=== PATIENT | female | born 1975 | race Caucasian/White ===

== ENCOUNTER 2018-02-01 06:59 | Day surgery (SDC) | payer OTHER ==
[2018-01-31 14:09] VITALS: BMI 32.9
[2018-02-01] MEDS ORDERED: MIDAZOLAM HCL 2 MG/2 ML SINGLE DOSE VIAL ONE (09:11)
[2018-02-01] MEDS ORDERED: PROPOFOL 20 ML ONE (09:11)
[2018-02-01] MEDS ORDERED: LIDOCAINE HCL 2% (20ML MULTI-DOSE VIAL) NR ONE (09:40)
[2018-02-01] MEDS ORDERED: ceFAZolin SODIUM 1 GM VIAL ONE (09:54)
[2018-02-01] MEDS ORDERED: LIDOCAINE HCL 2% (50ML VIAL) INF ONE (10:11)
--- NOTE | 2018-02-01 11:32 | OP ---
DATE OF OPERATION: 02/01/2018 LOCATION: [facility]. SURGEON: Car Tejada MD [employer]: SAAD Adame PREOPERATIVE DIAGNOSIS: Right wrist mass, i.e., ganglion cyst, volar surface. POSTOPERATIVE DIAGNOSIS: Right wrist mass, i.e., ganglion cyst, volar surface. PROCEDURE: Excision of right ganglion cyst, volar surface, removal of mass. FINDINGS: Ganglion type of cyst with extension into the carpus joint. PROCEDURE: Informed consent was obtained. The patient was brought to the operating room where the right upper extremity was prepped and draped in sterile fashion. A tourniquet was placed on the upper arm and inflated to 250 mmHg. A longitudinal incision was made in the area of the mass to the direction of the stalk. Cyst was identified and taken through the soft tissue and taken down to the stalk into the joint which was opened up to remove. There was noted to be adhesions to the artery which were removed leaving the wall of the cyst to the artery and superficial nerve structures released from the cyst as well. The wound was irrigated with copious amounts of irrigation. Tourniquet was released. There was no evidence of arterial bleeding minus venous bleeding treated with compression. The wound was irrigated again and closed with 4-0 nylon single interrupted suture. CAR TEJADA M.D. [id number]
[2018-02-01 11:35] VITALS: BP 110/65; PULSE 69; TEMP 98.2
[2018-02-01] MEDS ORDERED: oxyCODONE HCL 5 MG TABLET PO PRN (12:18)
[2018-02-01] MEDS ORDERED: ONDANSETRON 4 MG/2 ML VIAL IVPUSH PRN (12:18)
[2018-02-01] MEDS ORDERED: LACTATED RINGERS SOLUTION 1,000 ML IV SCH (12:30)
--- NOTE | 2018-02-04 11:57 | PATH ---
Surgical Pathology Report Patient Name: YURY SMITH [facility]. Rec. #: [id number] /Age/Gender: 1975 (Age: 42) / F Account: [id number] Location: [facility] AM[facility] Taken: 02/01/2018 Received: 02/01/2018 Reported: 02/04/2018 Physicians: Wiliam Rivera M.D. Specimen(s) Received RIGHT WRIST MASS Clinical History Right wrist cyst Final Diagnosis RIGHT WRIST MASS, EXCISION: CYST WITH FIBROUS WALL, CONSISTENT WITH A GANGLION CYST. Electronically Signed Deysi Sarmiento M.D. Gross Description Received in formalin labeled "right wrist mass," is a 1.4 x 0.4 x 0.2 cm flores portion of soft tissue, possibly consistent with a cyst. The specimen is submitted in toto in one cassette. /02/01/201802/01/2018
== END 2018-02-01 12:13 | disposition home or self-care (01) ==
LOC: FASU 06:59
PROVIDERS: ATTEND Orthopaedic Surgery
PROC: 0LB50ZZ Excision of Right Lower Arm and Wrist Tendon, Open Approach (ICD-10-PCS; principal; 2018-02-01 10:15)
DX: M67.431 Ganglion, right wrist (principal)
CPT/HCPCS: 84703; 88304-TC

== ENCOUNTER 2020-09-28 05:31 | Day surgery (SDC) | payer OTHER ==
[2020-09-27 08:47] VITALS: BMI 33.3
[2020-09-28] MEDS ORDERED: LIDOCAINE HCL/PF 2% SDV 5ML VIAL ONE ×2 (06:45→08:16)
[2020-09-28] MEDS ORDERED: ONDANSETRON 4 MG/2 ML VIAL ONE ×2 (06:45→09:07)
[2020-09-28] MEDS ORDERED: PROPOFOL 20 ML ONE ×3 (06:47)
[2020-09-28] MEDS ORDERED: SUCCINYLCHOLINE CHLORIDE 200 MG/10 ML SYRINGE ONE (06:47)
[2020-09-28] MEDS ORDERED: EPHEDRINE SULFATE/0.9% NACL/PF 50 MG/10 ML SYRINGE NR ONE ×2 (06:48)
[2020-09-28] MEDS ORDERED: KETAMINE HCL 200 MG/20 ML VIAL ONE (06:49)
[2020-09-28] MEDS ORDERED: ONDANSETRON 4 MG/2 ML VIAL IVPUSH PRN ×2 (07:41→08:50)
[2020-09-28] MEDS ORDERED: IBUPROFEN 800 MG/8 ML IJ IVPB PRN (07:41)
[2020-09-28] MEDS ORDERED: oxyCODONE HCL 5 MG TABLET PO PRN (07:41)
[2020-09-28] MEDS ORDERED: IBUPROFEN 600 MG TABLET (FP) PO PRN (07:41)
[2020-09-28] MEDS ORDERED: MIDAZOLAM HCL 2 MG/2 ML SINGLE DOSE VIAL ONE (07:45)
[2020-09-28] MEDS ORDERED: ELECTROLYTE-148 SOLN 1,000 ML IV SCH (07:45)
[2020-09-28] MEDS ORDERED: KETOROLAC TROMETHAMINE 30 MG/1 ML VIAL ONE (08:16)
[2020-09-28] MEDS ORDERED: DEXAMETHASONE SOD PHOSPHATE 4 MG/1 ML VIAL ONE (10:00)
[2020-09-28] MEDS ORDERED: METOCLOPRAMIDE HCL INJECTION 10 MG/2 ML VIAL ONE (10:03)
[2020-09-28] MEDS ORDERED: PROMETHAZINE HCL 25 MG/1 ML VIAL ONE (10:24)
[2020-09-28] MEDS ORDERED: PROMETHAZINE HCL 25 MG/1 ML VIAL IVPUSH PRN (10:30)
[2020-09-28] MEDS ORDERED: METOCLOPRAMIDE HCL INJECTION 10 MG/2 ML VIAL IVPUSH PRN (10:30)
[2020-09-28] MEDS ORDERED: DEXAMETHASONE SOD PHOSPHATE 20 MG/5 ML VIAL IVPB ONE (10:31)
[2020-09-28] MEDS ORDERED: PROMETHAZINE HCL 25 MG/1 ML VIAL IVPB PRN (10:37)
[2020-09-28 11:52] VITALS: TEMP 97
[2020-09-28 16:00] VITALS: BP 110/64; PULSE 100
== END 2020-09-28 16:00 | disposition home or self-care (01) ==
LOC: JASU-SURG 05:31
PROVIDERS: ATTEND Obstetrics & Gynecology
PROC: 0UDB7ZX Extraction of Endometrium, Via Natural or Artificial Opening, Diagnostic (ICD-10-PCS; 2020-09-28)
PROC: 0UJD8ZZ Inspection of Uterus and Cervix, Via Natural or Artificial Opening Endoscopic (ICD-10-PCS; 2020-09-28)
PROC: 0UB98ZZ Excision of Uterus, Via Natural or Artificial Opening Endoscopic (ICD-10-PCS; principal; 2020-09-28 07:30)
PROC: 0UB97ZX Excision of Uterus, Via Natural or Artificial Opening, Diagnostic (ICD-10-PCS; 2020-09-28 07:30)
DX: N93.9 Abnormal uterine and vaginal bleeding, unspecified (principal); D25.9 Leiomyoma of uterus, unspecified; N84.0 Polyp of corpus uteri
CPT/HCPCS: 81025; 94760

== ENCOUNTER 2023-09-03 20:52 | Emergency (ER) | payer OTHER ==
[2023-09-03 21:04] VITALS: PULSE 120; BMI 33.3
[2023-09-03] MEDS ORDERED: ACETAMINOPHEN 325 MG TABLET (FP) ONE (23:20)
[2023-09-03] MEDS: ACETAMINOPHEN 500 MG TABLET (FP) PO ONE (23:23)
[2023-09-04] MEDS ORDERED: AMOX TR/POT CLAV 875MG/125MG TABLETS (FP) ONE (01:00)
[2023-09-04] MEDS: AMOX TR/POT CLAV 875MG/125MG TABLETS (FP) PO STA (01:02)
[2023-09-04 01:13] VITALS: BP 123/69; RESP 15; TEMP 99.3
== END 2023-09-04 01:14 | disposition home or self-care (01) ==
LOC: JER 20:52
DX: J02.0 Streptococcal pharyngitis (principal); R50.9 Fever, unspecified; R05.9 Cough, unspecified; R09.81 Nasal congestion; R11.2 Nausea with vomiting, unspecified; M79.10 Myalgia, unspecified site; Z20.822 Contact with and (suspected) exposure to COVID-19
CPT/HCPCS: 0241U-QW; 71046-TC-FY; 87651; 99284-25